=== PATIENT | female | born 2005 | race Asian ===

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

== ENCOUNTER 2024-06-29 11:48 | Emergency (ER) | payer OTHER, SELFPAY ==
--- NOTE | 2024-06-29 11:51 | ED.LOWEXIN ---
HPI - Extremity Injury (Lower) General Chief Complaint: Extremity Injury, Lower Stated Complaint: Left Leg Pain Source: patient and RN notes reviewed Mode of arrival: ambulatory Limitations: no limitations History of Present Illness HPI Narrative: Patient is a 19-year-old female who presents to the [facility] with complaints of left anterior upper leg pain that has been ongoing since March. Patient believes that she injured the upper leg while squatting with weights. She states that she had a similar injury to her right anterior upper leg last summer but it only took a couple weeks to heal. Patient states that the pain has been ongoing but is intermittent. She states that the pain is brought on with certain movements and positioning. She has full range of motion of her left leg. She is neurovascularly intact distally. Sensation is intact. Related Data Allergies Allergy/AdvReac Type Severity Reaction Status Date / Time lactose Allergy Gastrointestinal Verified 06/29/24 11:57 Upset Sulfa (Sulfonamide Allergy Rash Verified 06/29/24 11:57 Antibiotics) Review of Systems Review of Systems: CONSTITUTIONAL: Denies fever, chills, or sweats. EYES: Denies visual changes, redness, or discharge. ENT: Denies otalgia and sore throat CARDIOVASCULAR: Denies chest pain, palpitations, or edema. RESPIRATORY: Denies cough or dyspnea. GASTROINTESTINAL: Denies abdominal pain, nausea, vomiting, or diarrhea. GENITOURINARY: Denies dysuria or hematuria. SKIN: Denies rash or itching. MUSCULOSKELETAL: Reports left upper leg pain. NEUROLOGIC: Denies headache, numbness, or weakness. Pertinent positives per HPI. PMFSH Comments At the time of my signature, I reviewed and agree with the nursing past medical, surgical, social, and family history. There is no relevant family history pertinent to the patient complaint. Exam Narrative: GENERAL: This is a well-nourished, well-developed patient, in no apparent distress. HEAD: normocephalic, atraumatic. EYES: PERRL. Sclera clear/white. Vision is grossly intact. EARS: External ears normal, auditory canals clear and without drainage, TMs normal without perforation. Hearing grossly intact. NOSE: External nose normal with no obvious nasal discharge, nares without redness, no rhinorrhea. THROAT: Mucous membranes moist, posterior pharynx clear. NECK: Neck supple, non-tender without lymphadenopathy, masses or thyromegaly. CARDIOVASCULAR: Regular rate and rhythm without murmurs, gallops, or rubs. RESPIRATORY: Clear to auscultation. Breath sounds equal bilaterally. No wheezes, rales, or rhonchi. GASTROINTESTINAL: Abdomen soft, non-tender, nondistended. Bowel sounds are active. No hepato-splenomegaly, or palpable masses. No guarding. SKIN: warm, intact with no suspicious lesions or rash, good texture and turgor. NEURO: awake, alert, and oriented to person, place and time. There were no obvious focal neurologic abnormalities. EXTREMITIES: No clubbing, cyanosis, or edema. No joint tenderness, effusion, or edema noted. BACK: Nontender without deformity or crepitance. No flank tenderness. Course Course Level of Care: Express Care Visit Vital Signs Vital signs: Vital Signs Temperature 97.8 F 06/29/24 11:57 Pulse Rate 98 06/29/24 11:57 Respiratory Rate 18 06/29/24 11:57 Blood Pressure 127/74 06/29/24 11:57 Pulse Oximetry 100 06/29/24 11:57 Temperature 97.8 F 06/29/24 11:57 Pulse Rate 98 06/29/24 11:57 Respiratory Rate 18 06/29/24 11:57 Blood Pressure 127/74 06/29/24 11:57 Pulse Oximetry 100 06/29/24 11:57 Reviewed MDM - Extremity Injury (Lower) MDM Narrative Medical decision making narrative: Use the RICE method at home. May take ibuprofen and/or Tylenol if needed. If symptoms persist in 1 week after conservative treatment, follow-up with specialist. Differential Diagnosis Differential diagnosis: Likely acute internal derangement of knee and other (muscle strain, femur fracture) Imaging Data Attestation: I personally reviewed and interpreted this imaging study as follows: Critical Care Time Critical Care Time Critical Care Time: No Discharge Plan Discharge Clinical Impression: Strain of left quadriceps muscle Patient Disposition: Home, Self-Care Condition: Stable Instructions: Muscle Strain (ED), P.R.I.C.E. Treatment (ED) Additional Instructions: Use the RICE method at home. May take ibuprofen and/or Tylenol if needed. If symptoms persist in 1 week after conservative treatment, follow-up with specialist. Patient Language: [place] Prescriptions: New naproxen 500 mg tablet 500 mg PO BID PRN (Reason: pain) Qty: 20 0RF Follow-up/Referrals: PHYSICIAN,CLINICAL TRIAL LEADER [Primary Care Provider] - Tim Guillen MD [Physician] - Time of Disposition: 12:03
[2024-06-29 11:57] VITALS: BP 127/74; PULSE 98; RESP 18; TEMP 36.6; O2SAT 100
== END 2024-06-29 12:09 | disposition home or self-care (01) ==
PROVIDERS: Emergency Provider Nurse Practitioner
DX: S76.112A Strain of left quadriceps muscle, fascia and tendon, initial encounter (principal); X50.3XXA Overexertion from repetitive movements, initial encounter
CPT/HCPCS: 99213; G0463

== ENCOUNTER 2024-09-27 12:51 | Outpatient (CLI) | payer OTHER, SELFPAY ==
--- NOTE | ~2024-09-27 | MR_ITS ---
MRI of the left knee Clinical history: Left quadriceps strain Technique: Coronal proton density and proton density-weighted images, sagittal proton-density and T2 fat-sat images, and axial proton-density fat-saturated images were acquired. Findings: Anterior and posterior cruciate ligaments are intact. Medial collateral ligament and the la teral collateral ligament complex are intact. Popliteus tendon is intact. Medial and lateral menisci are intact, without evidence of tear. Articular cartilage is well preserved throughout the knee. Bone marrow signals are unremarkable. Extensor mechanism is intact. No significant joint effusion or Villalobos's cyst. Impression: No significant abnormality seen. Reviewed, dictated and finalized at location . Impression: No significant abnormality seen.
== END 2024-09-27 12:52 | disposition home or self-care (01) ==
PROVIDERS: PCP Orthopaedic Surgery; Visit Provider Orthopaedic Surgery
DX: S76.112A Strain of left quadriceps muscle, fascia and tendon, initial encounter (principal); X58.XXXA Exposure to other specified factors, initial encounter
CPT/HCPCS: 73721

== ENCOUNTER 2024-10-24 10:44 | Outpatient (CLI) | payer OTHER, SELFPAY ==
--- NOTE | ~2024-10-24 | MR_ITS ---
EXAMINATION: MR femur LT wo con DATE: 10/24/2024 11:15 INDICATION: Left quadriceps muscle strain with pain at the mid left quadriceps TECHNIQUE: Magnetic resonance imaging (MRI) of the left thigh was performed without intravenous contr ast. Sequences included axial, sagittal and coronal T1-weighted FSE and. fluid sensitive FSE STIR. T he contralateral right thigh included on the coronal images. COMPARISON: None. FINDINGS: Bone alignment is normal. Normal bone marrow signal throughout with no reactive edema, fracture or pa thologic marrow replacing process. Joint spaces at the hips and knees appear normal although assessme nt of mild joint space narrowing and of the cartilage is limited on the relatively large [id number] w of imaging. Physiologic amount fluid in the joint space with no joint effusions. No Villalobos's cyst, b ursitis or other abnormal fluid collections. There are symmetric muscle bulk and normal signal throug hout the musculature of the thighs and visualized lower pelvis. The neurovascular structures in the l eft thigh appear normal. No free fluid in the pelvis. No pathologically enlarged or pelvic or inguina l lymphadenopathy. IMPRESSION: 1. Normal study. Reviewed, dictated and finalized at location A. IMPRESSION: 1. Normal study.
== END 2024-10-24 10:45 | disposition home or self-care (01) ==
PROVIDERS: PCP Orthopaedic Surgery; Visit Provider Orthopaedic Surgery
DX: S76.112A Strain of left quadriceps muscle, fascia and tendon, initial encounter (principal); X58.XXXA Exposure to other specified factors, initial encounter
CPT/HCPCS: 73718